=== PATIENT | male | born 1965 | race Native Hawaiian/Other Pacific Islander ===

== ENCOUNTER 2016-11-15 10:05 | Outpatient (CLI) | payer OTHER ==
[~2016-11-15 10:05] MED LIST: ALPR0.5T24 PO; AMLO2.5T PO; GABA300C2 PO; GLIM4TAB PO; HYDR10TA47 PO; LEVEMIR SC; LIPITOR10 MG PO; LO-DOSE ASA81 MG OR; LOSA50TA PO; METF500T PO; NOVOLOG SC; OMEP40CA PO; ONDA4TAB3 PO; POT GLUCONAT595 MG OR; RANI150T78 PO; ROBAXIN-750750 MG PO; TRAZ50TA36 PO; [UNRECOGNIZED DRUG - CODE] PO
[2016-11-15 11:02] LABS: POTASSIUM 4.1 mmol/L (3.6-5.2); SODIUM 136 mmol/L (136-145)
== END 2016-11-15 22:50 | disposition home or self-care (01) ==
LOC: LABW 10:05
PROVIDERS: Nurse Practitioner
DX: E11.9 Type 2 diabetes mellitus without complications (principal); Z12.5 Encounter for screening for malignant neoplasm of prostate; E78.00 Pure hypercholesterolemia, unspecified; D64.9 Anemia, unspecified
CPT/HCPCS: 36415; 80053; 80061; 82043; 82570; 82728; 83036; 83540; 84153

== ENCOUNTER 2017-04-26 09:20 | Outpatient (CLI) | payer OTHER | END 2017-04-26 10:30 | disposition home or self-care (01) | LOC: MRI 09:20 | DX: M54.5 Low back pain (principal) ==